=== PATIENT | male | born 1960 | race Two or more races ===

== ENCOUNTER 2020-12-07 15:03 | Inpatient (IN) | payer BC ==
[~2020-12-07] VITALS: Ht 165.1 cm; Wt 88.9 kg
[2020-12-07 17:32] LABS: CHLORIDE 108 mEq/L (98-107)
[2020-12-07 17:37] LABS: BASOPHILS % 0.7 % (0.0-2.0); EOSINOPHILS % 7.7 % (0.0-5.0); HEMATOCRIT. 43.2 % (42.0-52.0); LYMPHOCYTES % 33.3 % (20.0-50.0); MEAN CORPUSCULAR HEMOGLOBIN 32.2 pg (28.0-32.0); MEAN CORPUSCULAR VOLUME 92.7 fL (80.0-94.0); MEAN PLATELET VOLUME 7.6 fl (7.4-10.4); MONOCYTES % 6.9 % (2.0-8.0); NEUTROPHILS % 51.4 % (40.0-76.0); PLATELET 253 x1000/uL (130-400); RED BLOOD CELL COUNT 4.65 mill/uL (4.7-6.1); RED CELL DISTRIBUTION WIDTH 13.7 % (11.6-14.6)
[2020-12-07 17:54] LABS: CLARITY URINE CLEAR (CLEAR); COLOR URINE YELLOW (YELLOW); KETONES URINE NEGATIVE (NEGATIVE); LEUKOCYTE ESTERASE URINE NEGATIVE (NEGATIVE); NITRITE URINE NEGATIVE (NEGATIVE); OCCULT BLOOD URINE NEGATIVE (NEGATIVE); PH URINE 5.5 (4.5-8.0); PROTEIN URINE NEGATIVE (NEGATIVE); SPECIFIC GRAVITY URINE 1.013 (1.005-1.030)
[2020-12-07] MEDS ORDERED: GUAIFENESIN 200MG/10ML SUGAR FREE UDC PO PRN (21:30)
[2020-12-07] MEDS ORDERED: ZOLPIDEM TARTRATE 5MG TABLET PO PRN (21:30)
[2020-12-07] MEDS ORDERED: IPRATROPIUM/ALBUTEROL 0.5-3(2.5)MG/3ML NEB NEB PRN (21:30)
[2020-12-07] MEDS ORDERED: NITROGLYCERIN 0.4MG TABLET SL SL PRN (21:30)
[2020-12-07] MEDS ORDERED: MAGNESIUM/ALUMINUM HYDROXIDE/SIMETHICONE 30ML UDC PO PRN (21:30)
[2020-12-07] MEDS ORDERED: ACETAMINOPHEN 325MG TABLET PO PRN ×2 (21:30)
[2020-12-07] MEDS ORDERED: NA PHOS,M-B/NA PHOS,DI-BA ENEMA 118ML PR PRN (21:30)
[2020-12-07] MEDS ORDERED: ONDANSETRON HCL 4MG/2ML INJ IV PRN (21:30)
[2020-12-07] MEDS ORDERED: TRAMADOL 50MG TABLET PO PRN (21:41)
[2020-12-07] MEDS ORDERED: KETOROLAC 15MG/ML VIAL IV PRN (21:41)
[2020-12-07] MEDS ORDERED: ENOXAPARIN 40MG/0.4ML SYR SUBCUT SCH (22:00)
[2020-12-07 22:02] LABS: INR 0.9; PROTHROMBIN TIME 10.2 sec (9.6-11.0)
[2020-12-08] VITALS (7 sets, daily range): BP systolic 117–137; BP diastolic 78–97
[2020-12-08] MEDS ORDERED: ZINC SULFATE 220 MG ( 50 ) CAPSULE PO SCH (09:00)
[2020-12-08] MEDS ORDERED: ASCORBIC ACID 500 MG TABLET PO SCH (09:00)
[2020-12-08] MEDS ORDERED: CHOLECALCIFEROL (D3) 1000 UNIT TABLET PO SCH (09:00)
[2020-12-08 09:22] LABS: BASOPHILS % 0.8 % (0.0-2.0); EOSINOPHILS % 10.7 % (0.0-5.0); HEMATOCRIT. 41.8 % (42.0-52.0); LYMPHOCYTES % 40.5 % (20.0-50.0); MEAN CORPUSCULAR HEMOGLOBIN 31.1 pg (28.0-32.0); MEAN CORPUSCULAR VOLUME 93.1 fL (80.0-94.0); MEAN PLATELET VOLUME 7.3 fl (7.4-10.4); MONOCYTES % 7.6 % (2.0-8.0); NEUTROPHILS % 40.4 % (40.0-76.0); PLATELET 245 x1000/uL (130-400); RED CELL DISTRIBUTION WIDTH 13.3 % (11.6-14.6)
[2020-12-08 09:28] LABS: CHLORIDE 110 mEq/L (98-107)
[2020-12-08 09:38] LABS: PHOSPHORUS 3.9 mg/dL (2.5-4.9)
[2020-12-08] MEDS: FAMOTIDINE 20MG TABLET PO SCH ×2 (10:39→21:12)
[2020-12-08] MEDS: DOCUSATE SODIUM 100MG CAPSULE PO PRN (10:40)
[2020-12-08] MEDS: DEXAMETHASONE 4MG/ML 1ML VIAL IV SCH ×2 (11:39→18:15)
[2020-12-08] MEDS ORDERED: NALOXONE HCL 0.4MG/ML VIAL IV PRN (14:30)
[2020-12-09] VITALS (11 sets, daily range): BP systolic 85–147; BP diastolic 65–93
[2020-12-09] MEDS: DEXAMETHASONE 4MG/ML 1ML VIAL IV SCH ×4 (05:18→19:56)
[2020-12-09] MEDS ORDERED: GENTAMICIN SULF 40MG/ML 2ML VIAL ONE (06:31)
[2020-12-09] MEDS ORDERED: LIDOCAINE HCL/EPINEPHRINE 1%-EPI 1:100,000 20 ML VIAL ONE (06:31)
[2020-12-09] MEDS ORDERED: THROMBIN (BOVINE) 5000 UNITS/VIAL TOP ONE (06:32)
[2020-12-09] MEDS ORDERED: FENTANYL CITRATE/PF 50MCG/ML 2ML VIAL ONE (07:23)
[2020-12-09] MEDS ORDERED: NEOSTIGMINE METHYLSULFATE 1MG/ML 10 ML VIAL ONE (07:23)
[2020-12-09] MEDS ORDERED: ROCURONIUM BROMIDE 10MG/ML VIAL 5ML IV ONE ×3 (07:23→08:17)
[2020-12-09] MEDS ORDERED: PROPOFOL 200MG/20ML VIAL IV ONE (07:23)
[2020-12-09] MEDS ORDERED: DEXAMETHASONE 4MG/ML 1ML VIAL ONE (07:24)
[2020-12-09] MEDS ORDERED: CEFAZOLIN SODIUM 1000MG/VIAL ONE (07:24)
[2020-12-09] MEDS ORDERED: METOCLOPRAMIDE HCL 10MG/2ML VIAL ONE (07:24)
[2020-12-09] MEDS ORDERED: ONDANSETRON HCL 4MG/2ML INJ ONE (07:24)
[2020-12-09] MEDS ORDERED: SUCCINYLCHOLINE CHLORIDE 200MG/10ML IV ONE (07:24)
[2020-12-09] MEDS ORDERED: GLYCOPYRROLATE 0.2 MG/ML 2ML VIAL ONE (07:24)
[2020-12-09] MEDS ORDERED: MIDAZOLAM HCL 2 MG/2 ML VIAL ONE (07:24)
[2020-12-09] MEDS ORDERED: SODIUM CHLORIDE 0.9% 10ML VIAL ONE (07:24)
[2020-12-09] MEDS ORDERED: PHENYLEPHRINE HCL 10 MG/ML 1ML (IV VIAL) IV ONE (07:24)
[2020-12-09] MEDS ORDERED: MORPHINE SULFATE 4 MG/ML CPJ (NOT FOR IM USE) IV PRN (07:30)
[2020-12-09] MEDS ORDERED: HYDROMORPHONE HCL/PF 2MG/ML (OR) ONE (08:00)
[2020-12-09 08:15] LABS: CHLORIDE 106 mEq/L (98-107)
[2020-12-09 08:17] LABS: BASOPHILS % 0.2 % (0.0-2.0); HEMATOCRIT. 44.8 % (42.0-52.0); HEMOGLOBIN. 15.1 g/dL (14.0-18.0); LYMPHOCYTES % 11.5 % (20.0-50.0); MEAN CORPUSCULAR HEMOGLOBIN 31.2 pg (28.0-32.0); MEAN CORPUSCULAR VOLUME 92.7 fL (80.0-94.0); MEAN PLATELET VOLUME 7.7 fl (7.4-10.4); MONOCYTES % 2.9 % (2.0-8.0); NEUTROPHILS % 85.4 % (40.0-76.0); PLATELET 271 x1000/uL (130-400); RED BLOOD CELL COUNT 4.83 mill/uL (4.7-6.1); RED CELL DISTRIBUTION WIDTH 13.3 % (11.6-14.6)
[2020-12-09] MEDS ORDERED: HYDROMORPHONE HCL/PF 2MG/ML CPJ IV PRN (09:15)
[2020-12-09] MEDS ORDERED: SODIUM CHLORIDE 0.9% 1,000 ML IV ONE (09:15)
[2020-12-09] MEDS ORDERED: MEPERIDINE HCL/PF 25MG/ML CPJ IV PRN ×2 (09:15)
[2020-12-09] MEDS ORDERED: MORPHINE SULFATE 2 MG/ML CPJ (NOT FOR IM USE) IV PRN (09:15)
[2020-12-09] MEDS ORDERED: ONDANSETRON HCL 4MG/2ML INJ IV PRN (09:15)
[2020-12-09] MEDS ORDERED: LABETALOL HCL 5MG/ML VIAL 20ML IV ONE (09:42)
[2020-12-09] MEDS ORDERED: DIPHENHYDRAMINE INJ IV PRN (10:45)
[2020-12-09] MEDS ORDERED: NALOXONE INJ IV PRN (10:45)
[2020-12-09] MEDS ORDERED: HYDROMORPHONE PCA 10MG/50ML IV PRN (10:45)
[2020-12-09] MEDS ORDERED: ONDANSETRON INJ IV PRN (10:45)
[2020-12-09] MEDS: NICARDIPINE 100 MG in SODIUM CHLORIDE 0.9% 60 ML IV PRN (11:00)
[2020-12-09] MEDS ORDERED: CEFAZOLIN SODIUM 1000MG/VIAL IV SCH (14:00)
[2020-12-09] MEDS: DEXT 5%/LACTATED RINGERS 1,000 ML IV SCH ×2 (15:36→15:38)
[2020-12-09] MEDS: CEFAZOLIN 1000MG PREMIX 50 ML IV SCH (15:42)
[2020-12-09] MEDS: FAMOTIDINE 20MG TABLET PO SCH (21:00)
[2020-12-10] VITALS (93 sets, daily range): BP systolic 73–141; BP diastolic 35–98
[2020-12-10] MEDS: CEFAZOLIN 1000MG PREMIX 50 ML IV SCH ×3 (00:29→16:10)
[2020-12-10] MEDS: DEXT 5%/LACTATED RINGERS 1,000 ML IV SCH ×3 (00:30→13:20)
[2020-12-10] MEDS: DEXAMETHASONE 4MG/ML 1ML VIAL IV SCH ×3 (02:46→13:18)
[2020-12-10 05:28] LABS: CHLORIDE 107 mEq/L (98-107)
[2020-12-10 05:34] LABS: HEMATOCRIT. 44.5 % (42.0-52.0); HEMOGLOBIN. 15.1 g/dL (14.0-18.0); MEAN CORPUSCULAR HEMOGLOBIN 31.3 pg (28.0-32.0); MEAN CORPUSCULAR VOLUME 92.1 fL (80.0-94.0); MEAN PLATELET VOLUME 7.8 fl (7.4-10.4); PLATELET 272 x1000/uL (130-400); RED BLOOD CELL COUNT 4.83 mill/uL (4.7-6.1); RED CELL DISTRIBUTION WIDTH 13.4 % (11.6-14.6)
[2020-12-10] MEDS: FAMOTIDINE 20MG TABLET PO SCH ×2 (08:10→21:16)
[2020-12-10] MEDS: DOCUSATE SODIUM 100MG CAPSULE PO PRN (08:10)
[2020-12-10] MEDS: CLONIDINE 0.1MG TABLET PO PRN ×2 (08:19→17:52)
[2020-12-10 10:28] LABS: PLATELET ESTIMATE NORMAL
[2020-12-10] MEDS ORDERED: HYDRALAZINE HCL 25MG TABLET PO NR (10:45)
[2020-12-10] MEDS: AMLODIPINE 10MG TABLET PO SCH (11:31)
[2020-12-10] MEDS: NICARDIPINE 100 MG in SODIUM CHLORIDE 0.9% 60 ML IV PRN (13:19)
[2020-12-10] MEDS: HYDRALAZINE HCL 25MG TABLET PO SCH ×2 (13:20→21:17)
[2020-12-11] VITALS (58 sets, daily range): BP systolic 92–159; BP diastolic 47–102
[2020-12-11] MEDS: CEFAZOLIN 1000MG PREMIX 50 ML IV SCH ×3 (00:17→15:33)
[2020-12-11] MEDS: DEXT 5%/LACTATED RINGERS 1,000 ML IV SCH ×2 (01:07→08:24)
[2020-12-11] MEDS: HYDRALAZINE HCL 25MG TABLET PO SCH (06:29)
[2020-12-11] MEDS: DOCUSATE SODIUM 100MG CAPSULE PO PRN (08:19)
[2020-12-11] MEDS: FAMOTIDINE 20MG TABLET PO SCH ×2 (08:19→21:21)
[2020-12-11] MEDS: AMLODIPINE 10MG TABLET PO SCH (08:20)
[2020-12-11] MEDS: CLONIDINE 0.1MG TABLET PO PRN (08:20)
[2020-12-11] MEDS: IPRATROPIUM/ALBUTEROL 0.5-3(2.5)MG/3ML NEB HHN SCH (12:48)
[2020-12-11] MEDS: HYDRALAZINE HCL 50MG TABLET PO SCH ×2 (13:43→21:21)
[2020-12-11] MEDS: LOSARTAN POTASSIUM 50 MG TABLET PO SCH (13:43)
[2020-12-11] MEDS: HYDROCODONE/ACETAMINOPHEN 5/325MG TABLET PO PRN (21:34)
[2020-12-12] VITALS (7 sets, daily range): BP systolic 109–121; BP diastolic 70–87
[2020-12-12] MEDS: IPRATROPIUM/ALBUTEROL 0.5-3(2.5)MG/3ML NEB HHN SCH ×4 (00:26→16:36)
[2020-12-12] MEDS: HYDROCODONE/ACETAMINOPHEN 5/325MG TABLET PO PRN ×2 (05:05→15:33)
[2020-12-12] MEDS: HYDRALAZINE HCL 50MG TABLET PO SCH ×3 (05:06→20:59)
[2020-12-12 08:07] LABS: BASOPHILS % 0.1 % (0.0-2.0); EOSINOPHILS % 0.4 % (0.0-5.0); HEMATOCRIT. 41.7 % (42.0-52.0); HEMOGLOBIN. 13.9 g/dL (14.0-18.0); LYMPHOCYTES % 30.5 % (20.0-50.0); MEAN CORPUSCULAR HEMOGLOBIN 31.1 pg (28.0-32.0); MEAN CORPUSCULAR VOLUME 93.2 fL (80.0-94.0); MEAN PLATELET VOLUME 7.8 fl (7.4-10.4); MONOCYTES % 7.9 % (2.0-8.0); NEUTROPHILS % 61.1 % (40.0-76.0); PLATELET 249 x1000/uL (130-400); RED BLOOD CELL COUNT 4.47 mill/uL (4.7-6.1); RED CELL DISTRIBUTION WIDTH 13.4 % (11.6-14.6)
[2020-12-12 08:09] LABS: CHLORIDE 107 mEq/L (98-107)
[2020-12-12] MEDS: LOSARTAN POTASSIUM 50 MG TABLET PO SCH (08:55)
[2020-12-12] MEDS: FAMOTIDINE 20MG TABLET PO SCH ×2 (08:55→20:49)
[2020-12-12] MEDS: AMLODIPINE 10MG TABLET PO SCH (08:55)
[2020-12-12] MEDS: MORPHINE SULFATE 4 MG/ML CPJ (NOT FOR IM USE) IV PRN (20:51)
[2020-12-13] VITALS (10 sets, daily range): BP systolic 90–137; BP diastolic 54–80
[2020-12-13] MEDS: IPRATROPIUM/ALBUTEROL 0.5-3(2.5)MG/3ML NEB HHN SCH ×2 (00:40→13:04)
[2020-12-13] MEDS: HYDROCODONE/ACETAMINOPHEN 5/325MG TABLET PO PRN ×2 (04:57→20:42)
[2020-12-13] MEDS: HYDRALAZINE HCL 50MG TABLET PO SCH ×3 (06:00→20:30)
[2020-12-13] MEDS: FAMOTIDINE 20MG TABLET PO SCH ×2 (08:58→20:29)
[2020-12-13] MEDS: AMLODIPINE 10MG TABLET PO SCH (08:59)
[2020-12-13] MEDS: LOSARTAN POTASSIUM 50 MG TABLET PO SCH (09:00)
[2020-12-14] VITALS (10 sets, daily range): BP systolic 95–142; BP diastolic 59–86
[2020-12-14] MEDS: MORPHINE SULFATE 4 MG/ML CPJ (NOT FOR IM USE) IV PRN ×2 (02:45→21:49)
[2020-12-14] MEDS: HYDRALAZINE HCL 50MG TABLET PO SCH ×3 (05:35→21:49)
[2020-12-14] MEDS: LOSARTAN POTASSIUM 50 MG TABLET PO SCH (07:57)
[2020-12-14] MEDS: AMLODIPINE 10MG TABLET PO SCH (07:58)
[2020-12-14] MEDS: FAMOTIDINE 20MG TABLET PO SCH ×2 (07:58→20:14)
[2020-12-14] MEDS: IPRATROPIUM/ALBUTEROL 0.5-3(2.5)MG/3ML NEB HHN SCH ×2 (08:13→16:45)
[2020-12-14] MEDS: LACTULOSE 20G/30ML UDC PO SCH ×3 (13:10→20:14)
[2020-12-14] MEDS ORDERED: BISACODYL 10MG SUPP PR NR (13:15)
[2020-12-15] VITALS (8 sets, daily range): BP systolic 92–156; BP diastolic 50–85
[2020-12-15] MEDS: HYDRALAZINE HCL 50MG TABLET PO SCH ×3 (05:53→21:04)
[2020-12-15] MEDS: FAMOTIDINE 20MG TABLET PO SCH ×2 (08:52→21:03)
[2020-12-15] MEDS: AMLODIPINE 10MG TABLET PO SCH (08:52)
[2020-12-15] MEDS: LOSARTAN POTASSIUM 50 MG TABLET PO SCH (08:52)
[2020-12-15] MEDS: IPRATROPIUM/ALBUTEROL 0.5-3(2.5)MG/3ML NEB HHN SCH (11:56)
[2020-12-15] MEDS ORDERED: SORBITOL 70% SOLN 30ML PO NR (15:00)
[2020-12-15] MEDS ORDERED: NA PHOS,M-B/NA PHOS,DI-BA ENEMA 118ML PR PRN (15:00)
[2020-12-15] MEDS ORDERED: NA PHOS,M-B/NA PHOS,DI-BA ENEMA 118ML PR NR (15:00)
[2020-12-16] MEDS: IPRATROPIUM/ALBUTEROL 0.5-3(2.5)MG/3ML NEB HHN SCH ×2 (00:37→08:14)
[2020-12-16] MEDS: HYDROCODONE/ACETAMINOPHEN 5/325MG TABLET PO PRN ×2 (01:29→10:50)
[2020-12-16 04:00] VITALS: BP 126/76
[2020-12-16] MEDS: HYDRALAZINE HCL 50MG TABLET PO SCH ×3 (05:33→21:07)
[2020-12-16 08:00] VITALS: BP 122/78
[2020-12-16] MEDS: LOSARTAN POTASSIUM 50 MG TABLET PO SCH (08:38)
[2020-12-16] MEDS: FAMOTIDINE 20MG TABLET PO SCH ×2 (08:38→21:05)
[2020-12-16] MEDS: AMLODIPINE 10MG TABLET PO SCH (08:38)
[2020-12-16 16:00] VITALS: BP 125/78
[2020-12-16 20:00] VITALS: BP 108/69
[2020-12-17] VITALS: BP 114/80
[2020-12-17] MEDS: MORPHINE SULFATE 4 MG/ML CPJ (NOT FOR IM USE) IV PRN (00:07)
[2020-12-17 04:00] VITALS: BP 104/76
[2020-12-17] MEDS: HYDRALAZINE HCL 50MG TABLET PO SCH (05:45)
[2020-12-17 08:00] VITALS: BP 126/87
[2020-12-17] MEDS: AMLODIPINE 10MG TABLET PO SCH (08:36)
[2020-12-17] MEDS: FAMOTIDINE 20MG TABLET PO SCH (08:36)
[2020-12-17] MEDS: LOSARTAN POTASSIUM 50 MG TABLET PO SCH (08:36)
[2020-12-17 12:00] VITALS: BP 107/53
[2020-12-17 14:27] VITALS: BP 114/76
== END 2020-12-17 15:00 | disposition home health service (06) | DRG 471 ==
LOC: ER 15:03 → 6EST 20:55 → ENRESERV 22:33 → ER 22:54 → MICUSO 12-09 22:10 → 5EST 12-11 14:18
PROVIDERS: ADMIT Internal Medicine; ATTEND Internal Medicine
PROC: 0RG2071 Fusion of 2 or more Cervical Vertebral Joints with Autologous Tissue Substitute, Posterior Approach, Posterior Column, Open Approach (ICD-10-PCS; principal; 2020-12-07)
PROC: 01N10ZZ Release Cervical Nerve, Open Approach (ICD-10-PCS; 2020-12-07)
PROC: 4A11X4G Monitoring of Peripheral Nervous Electrical Activity, Intraoperative, External Approach (ICD-10-PCS; 2020-12-07)
DX: M48.02 Spinal stenosis, cervical region (principal); G82.50 Quadriplegia, unspecified; G99.2 Myelopathy in diseases classified elsewhere; I10 Essential (primary) hypertension; F17.210 Nicotine dependence, cigarettes, uncomplicated; M54.12 Radiculopathy, cervical region; M48.03 Spinal stenosis, cervicothoracic region; D64.9 Anemia, unspecified; D72.829 Elevated white blood cell count, unspecified; R53.81 Other malaise; R13.10 Dysphagia, unspecified; Z20.822 Contact with and (suspected) exposure to COVID-19; I16.0 Hypertensive urgency; Z99.3 Dependence on wheelchair
CPT/HCPCS: 36415; 71045; 72040; 72141; 76000; 80048; 80053; 81003; 83735; 84100; 85025; 86850; 86900; 87426; 88305; 88311; 93005; 93306; 93970; 94640; 95863; 95925; 95926; 95928; 95929; 97110; 97116; 97161; 97166; 97530; 97535; 99285; A6261; C1713; J0330; J0690; J1100; J1170; J1580; J1650; J2175; J2250; J2270; J2370; J2405; J2704; J2710; J2765; J3010; J3490; J7040; J7050; J7121; L0172

== ENCOUNTER 2021-08-30 05:31 | Inpatient (IN) | payer BC ==
[2021-08-30] VITALS (19 sets, daily range): BP systolic 67–137; BP diastolic 43–76
[~2021-08-30] VITALS: Ht 172.7 cm; Wt 81.6 kg
[~2021-08-30 05:31] MED LIST: ROCURONIUM BROMIDE 10MG/ML VIAL 5ML IV ONE
[2021-08-30] MEDS: LACTATED RINGERS 1,000 ML IV SCH (06:25)
[2021-08-30] MEDS ORDERED: THROMBIN (BOVINE) 5000 UNITS/VIAL TOP ONE (06:31)
[2021-08-30] MEDS ORDERED: GENTAMICIN SULF 40MG/ML 2ML VIAL ONE (06:32)
[2021-08-30] MEDS ORDERED: LIDOCAINE HCL/EPINEPHRINE 1%-EPI 1:100,000 20 ML VIAL ONE (06:32)
[2021-08-30] MEDS ORDERED: HYDROMORPHONE HCL/PF 2MG/ML CPJ ONE (07:24)
[2021-08-30] MEDS ORDERED: ROCURONIUM BROMIDE 10MG/ML VIAL 5ML IV ONE ×2 (07:24→08:15)
[2021-08-30] MEDS ORDERED: ALBUMIN HUMAN 25GM/100ML (25%) IV ONE (07:57)
[2021-08-30] MEDS ORDERED: CALCIUM CHLORIDE 1GM/10ML SYR IV ONE (07:58)
[2021-08-30] MEDS ORDERED: CEFAZOLIN SODIUM 1000MG/VIAL ONE (09:38)
[2021-08-30] MEDS ORDERED: DEXAMETHASONE 4MG/ML 1ML VIAL ONE (09:38)
[2021-08-30] MEDS ORDERED: EPHEDRINE SULFATE 50MG/ML VIAL ONE (09:38)
[2021-08-30 10:04] LABS: CLARITY URINE CLEAR (CLEAR); COLOR URINE YELLOW (YELLOW); KETONES URINE NEGATIVE (NEGATIVE); LEUKOCYTE ESTERASE URINE NEGATIVE (NEGATIVE); NITRITE URINE NEGATIVE (NEGATIVE); OCCULT BLOOD URINE NEGATIVE (NEGATIVE); PH URINE 6.5 (4.5-8.0); PROTEIN URINE NEGATIVE (NEGATIVE); SPECIFIC GRAVITY URINE 1.009 (1.005-1.030); UROBILINOGEN URINE 0.2 E.U./dL (0.2-1.0)
[2021-08-30] MEDS ORDERED: HYDRALAZINE 20MG/ML VIAL ONE (10:31)
[2021-08-30] MEDS ORDERED: NICARDIPINE 100 MG in SODIUM CHLORIDE 0.9% 60 ML IV PRN (10:45)
[2021-08-30] MEDS ORDERED: MEPERIDINE HCL/PF 25MG/ML CPJ IV PRN (11:00)
[2021-08-30] MEDS ORDERED: ONDANSETRON HCL 4MG/2ML INJ IV PRN (11:00)
[2021-08-30] MEDS ORDERED: NALOXONE HCL 0.4MG/ML VIAL IV PRN (11:00)
[2021-08-30] MEDS ORDERED: LABETALOL 5MG/ML SYR 20 MG/4 ML SYRINGE IV PRN (11:00)
[2021-08-30] MEDS ORDERED: HYDROMORPHONE HCL/PF 2MG/ML CPJ IV PRN (11:00)
[2021-08-30] MEDS: DEXT 5%/LACTATED RINGERS 1,000 ML IV SCH ×2 (12:41→23:01)
[2021-08-30] MEDS ORDERED: CEFAZOLIN SODIUM 1000MG/VIAL IV SCH (14:00)
[2021-08-30] MEDS: CEFAZOLIN 1000MG PREMIX 50 ML IV SCH ×2 (15:12→23:21)
[2021-08-30] MEDS ORDERED: IPRATROPIUM/ALBUTEROL 0.5-3(2.5)MG/3ML NEB HHN PRN (15:15)
[2021-08-30] MEDS: HYDROCODONE/APAP 7.5/325MG 1 TAB TABLET PO PRN (16:45)
[2021-08-30] MEDS ORDERED: ALBUMIN HUMAN 25GM/100ML (25%) IV NR (18:15)
[2021-08-30] MEDS: MORPHINE SULFATE 4 MG/ML CPJ (NOT FOR IM USE) IV PRN (23:00)
[2021-08-31] VITALS (49 sets, daily range): BP systolic 71–204; BP diastolic 45–183
[2021-08-31] MEDS: DEXT 5%/LACTATED RINGERS 1,000 ML IV SCH ×3 (02:45→18:45)
[2021-08-31] MEDS: MORPHINE SULFATE 4 MG/ML CPJ (NOT FOR IM USE) IV PRN ×2 (05:54→12:54)
[2021-08-31] MEDS: CEFAZOLIN 1000MG PREMIX 50 ML IV SCH ×3 (07:48→22:07)
[2021-08-31] MEDS: HYDROCODONE/APAP 7.5/325MG 1 TAB TABLET PO PRN (22:07)
[2021-09-01] VITALS: BP 111/60
[2021-09-01 04:00] VITALS: BP 128/80
[2021-09-01] MEDS: DEXT 5%/LACTATED RINGERS 1,000 ML IV SCH ×2 (04:42→14:31)
[2021-09-01] MEDS: MORPHINE SULFATE 4 MG/ML CPJ (NOT FOR IM USE) IV PRN ×2 (04:44→08:30)
[2021-09-01] MEDS: CEFAZOLIN 1000MG PREMIX 50 ML IV SCH ×3 (06:48→22:20)
[2021-09-01 08:00] VITALS: BP 129/82
[2021-09-01] MEDS: HYDROCODONE/APAP 7.5/325MG 1 TAB TABLET PO PRN ×2 (12:30→19:09)
[2021-09-01 15:34] LABS: BASOPHILS % 0.3 % (0.0-2.0); EOSINOPHILS % 3.5 % (0.0-5.0); HEMATOCRIT. 33.8 % (42.0-52.0); HEMOGLOBIN. 11.6 g/dL (14.0-18.0); LYMPHOCYTES % 15.8 % (20.0-50.0); MEAN CORPUSCULAR HEMOGLOBIN 31.7 pg (28.0-32.0); MEAN CORPUSCULAR VOLUME 92.7 fL (80.0-94.0); MEAN PLATELET VOLUME 7.6 fl (7.4-10.4); MONOCYTES % 7.5 % (2.0-8.0); NEUTROPHILS % 72.9 % (40.0-76.0); PLATELET 206 x1000/uL (130-400); RED BLOOD CELL COUNT 3.65 mill/uL (4.7-6.1); RED CELL DISTRIBUTION WIDTH 13.4 % (11.6-14.6)
[2021-09-01 15:39] LABS: CHLORIDE 106 mEq/L (98-107)
[2021-09-02 00:16] VITALS: BP 96/54
[2021-09-02] MEDS: MORPHINE SULFATE 4 MG/ML CPJ (NOT FOR IM USE) IV PRN (02:11)
[2021-09-02 04:09] VITALS: BP 106/72
[2021-09-02 06:10] LABS: BASOPHILS % 0.4 % (0.0-2.0); EOSINOPHILS % 5.4 % (0.0-5.0); HEMOGLOBIN. 11.5 g/dL (14.0-18.0); LYMPHOCYTES % 19.7 % (20.0-50.0); MEAN CORPUSCULAR HEMOGLOBIN 31.3 pg (28.0-32.0); MEAN CORPUSCULAR VOLUME 92.4 fL (80.0-94.0); MEAN PLATELET VOLUME 7.8 fl (7.4-10.4); MONOCYTES % 7.9 % (2.0-8.0); NEUTROPHILS % 66.6 % (40.0-76.0); PLATELET 200 x1000/uL (130-400); RED BLOOD CELL COUNT 3.68 mill/uL (4.7-6.1)
[2021-09-02 06:29] LABS: CHLORIDE 103 mEq/L (98-107)
[2021-09-02] MEDS: CEFAZOLIN 1000MG PREMIX 50 ML IV SCH ×3 (06:58→21:45)
[2021-09-02 08:00] VITALS: BP 106/77
[2021-09-02] MEDS: HYDROCODONE/APAP 7.5/325MG 1 TAB TABLET PO PRN ×2 (10:34→18:36)
[2021-09-02 12:00] VITALS: BP 101/60
[2021-09-02 16:00] VITALS: BP 101/56
[2021-09-02 20:00] VITALS: BP 112/70
[2021-09-03] VITALS (7 sets, daily range): BP systolic 99–118; BP diastolic 55–72
[2021-09-03] MEDS: LACTATED RINGERS 1,000 ML IV SCH (00:48)
[2021-09-03] MEDS: HYDROCODONE/APAP 7.5/325MG 1 TAB TABLET PO PRN ×3 (04:45→23:00)
[2021-09-03] MEDS: CEFAZOLIN 1000MG PREMIX 50 ML IV SCH ×3 (06:50→21:22)
[2021-09-03 07:57] LABS: BASOPHILS % 0.4 % (0.0-2.0); HEMATOCRIT. 33.1 % (42.0-52.0); HEMOGLOBIN. 11.4 g/dL (14.0-18.0); LYMPHOCYTES % 16.3 % (20.0-50.0); MEAN CORPUSCULAR HEMOGLOBIN 31.6 pg (28.0-32.0); MEAN CORPUSCULAR VOLUME 91.6 fL (80.0-94.0); MEAN PLATELET VOLUME 7.7 fl (7.4-10.4); MONOCYTES % 7.6 % (2.0-8.0); NEUTROPHILS % 68.7 % (40.0-76.0); PLATELET 238 x1000/uL (130-400); RED BLOOD CELL COUNT 3.61 mill/uL (4.7-6.1); RED CELL DISTRIBUTION WIDTH 12.8 % (11.6-14.6)
[2021-09-03 08:05] LABS: CHLORIDE 106 mEq/L (98-107)
== END 2021-09-03 23:05 | DRG 460 ==
LOC: OR 05:31 → MICUNO 19:59 → 6EST 08-31 11:14
PROVIDERS: ADMIT Neurological Surgery; ATTEND Neurological Surgery
PROC: 0SG1071 Fusion of 2 or more Lumbar Vertebral Joints with Autologous Tissue Substitute, Posterior Approach, Posterior Column, Open Approach (ICD-10-PCS; principal; 2021-08-30)
PROC: 01NB0ZZ Release Lumbar Nerve, Open Approach (ICD-10-PCS; 2021-08-30)
PROC: 4A11X4G Monitoring of Peripheral Nervous Electrical Activity, Intraoperative, External Approach (ICD-10-PCS; 2021-08-30)
DX: M47.16 Other spondylosis with myelopathy, lumbar region (principal); G82.20 Paraplegia, unspecified; G81.90 Hemiplegia, unspecified affecting unspecified side; M48.061 Spinal stenosis, lumbar region without neurogenic claudication; M43.16 Spondylolisthesis, lumbar region; Z20.822 Contact with and (suspected) exposure to COVID-19; I10 Essential (primary) hypertension; D64.9 Anemia, unspecified; F17.210 Nicotine dependence, cigarettes, uncomplicated; M47.817 Spondylosis without myelopathy or radiculopathy, lumbosacral region; Z82.49 Family history of ischemic heart disease and other diseases of the circulatory system
CPT/HCPCS: 36415; 72100; 76000; 80048; 81003; 85025; 86850; 86900; 87426; 95863; 95925; 95926; 95928; 95929; 97116; 97162; 97166; 97530; 97535; C1713; J0360; J0690; J1100; J1170; J1580; J2270; J3490; J7121; P9047

== ENCOUNTER 2021-09-03 23:07 | Inpatient (IN) | payer BC ==
[~2021-09-03] VITALS: Ht 172.7 cm; Wt 79.8 kg
[2021-09-03 23:07] VITALS: BP 121/81
[2021-09-04 00:50] VITALS: BP 121/81
[2021-09-04] MEDS ORDERED: MORPHINE SULFATE 4 MG/ML CPJ (NOT FOR IM USE) IV PRN (02:30)
[2021-09-04] MEDS ORDERED: NALOXONE HCL 0.4 MG/ML 1ML VIAL IV PRN (02:30)
[2021-09-04] MEDS ORDERED: IPRATROPIUM/ALBUTEROL 0.5-3(2.5)MG/3ML NEB HHN PRN (02:30)
[2021-09-04] MEDS ORDERED: LACTATED RINGERS 1,000 ML IV SCH (02:30)
[2021-09-04] MEDS ORDERED: MORPHINE SULFATE 2 MG/ML CPJ (NOT FOR IM USE) IV PRN (02:45)
[2021-09-04 07:35] LABS: BASOPHILS % 0.3 % (0.0-2.0); EOSINOPHILS % 9.4 % (0.0-5.0); HEMATOCRIT. 33.6 % (42.0-52.0); HEMOGLOBIN. 11.6 g/dL (14.0-18.0); LYMPHOCYTES % 18.5 % (20.0-50.0); MEAN CORPUSCULAR HEMOGLOBIN 31.7 pg (28.0-32.0); MEAN CORPUSCULAR VOLUME 92.3 fL (80.0-94.0); MEAN PLATELET VOLUME 7.4 fl (7.4-10.4); MONOCYTES % 8.8 % (2.0-8.0); PLATELET 286 x1000/uL (130-400); RED BLOOD CELL COUNT 3.64 mill/uL (4.7-6.1); RED CELL DISTRIBUTION WIDTH 12.7 % (11.6-14.6)
[2021-09-04 07:52] LABS: CHLORIDE 107 mEq/L (98-107)
[2021-09-04 08:00] VITALS: BP 102/62
[2021-09-04] MEDS: CEFAZOLIN 1000MG PREMIX 50 ML IV SCH ×3 (08:04→22:17)
[2021-09-04] MEDS: HYDROCODONE/APAP 7.5/325MG 1 TAB TABLET PO PRN (09:43)
[2021-09-04 12:00] VITALS: BP 115/65
[2021-09-04] MEDS: LACTULOSE 20G/30ML UDC PO SCH ×2 (12:30→16:53)
[2021-09-04 16:00] VITALS: BP 123/62
[2021-09-04 20:00] VITALS: BP 103/55
[2021-09-05] MEDS: HYDROCODONE/APAP 7.5/325MG 1 TAB TABLET PO PRN ×2 (00:03→23:04)
[2021-09-05] MEDS: CEFAZOLIN 1000MG PREMIX 50 ML IV SCH (07:15)
[2021-09-05 07:49] LABS: BASOPHILS % 0.5 % (0.0-2.0); EOSINOPHILS % 10.8 % (0.0-5.0); HEMATOCRIT. 34.8 % (42.0-52.0); HEMOGLOBIN. 11.7 g/dL (14.0-18.0); LYMPHOCYTES % 21.5 % (20.0-50.0); MEAN CORPUSCULAR HEMOGLOBIN 31.1 pg (28.0-32.0); MEAN CORPUSCULAR VOLUME 92.5 fL (80.0-94.0); MEAN PLATELET VOLUME 7.3 fl (7.4-10.4); MONOCYTES % 8.9 % (2.0-8.0); NEUTROPHILS % 58.3 % (40.0-76.0); PLATELET 301 x1000/uL (130-400); RED BLOOD CELL COUNT 3.76 mill/uL (4.7-6.1); RED CELL DISTRIBUTION WIDTH 13.2 % (11.6-14.6)
[2021-09-05 08:00] VITALS: BP 125/81
[2021-09-05 08:08] LABS: CHLORIDE 106 mEq/L (98-107)
[2021-09-05 08:26] LABS: TOTAL IRON BINDING CAPACITY 260 ug/dL (250-450)
[2021-09-05 08:39] LABS: FOLIC ACID (FOLATE) SERUM 16.1 ng/mL (>5.38)
[2021-09-05 12:00] VITALS: BP 128/83
[2021-09-05] MEDS: CYANOCOBALAMIN 1000MCG/ML VIAL IM SCH (12:45)
[2021-09-05] MEDS: FERROUS SULFATE 325MG TABLET PO SCH ×2 (14:32→17:42)
[2021-09-05] MEDS: ASCORBIC ACID 500 MG TABLET PO SCH (14:32)
[2021-09-05 16:00] VITALS: BP 120/80
[2021-09-05 20:00] VITALS: BP 118/83
[2021-09-06 07:55] VITALS: BP 111/78
[2021-09-06] MEDS: ASCORBIC ACID 500 MG TABLET PO SCH (08:01)
[2021-09-06] MEDS: FERROUS SULFATE 325MG TABLET PO SCH ×3 (08:01→17:34)
[2021-09-06] MEDS: CYANOCOBALAMIN 1000MCG/ML VIAL IM SCH (08:02)
[2021-09-06 20:43] VITALS: BP 109/68
[2021-09-06] MEDS: HYDROCODONE/APAP 7.5/325MG 1 TAB TABLET PO PRN (21:55)
[2021-09-07 08:00] VITALS: BP 105/66
[2021-09-07] MEDS: ASCORBIC ACID 500 MG TABLET PO SCH (09:07)
[2021-09-07] MEDS: FERROUS SULFATE 325MG TABLET PO SCH ×3 (09:07→17:32)
[2021-09-07] MEDS: CYANOCOBALAMIN 1000MCG/ML VIAL IM SCH (09:08)
[2021-09-07 20:00] VITALS: BP 105/69
[2021-09-08] MEDS: HYDROCODONE/APAP 7.5/325MG 1 TAB TABLET PO PRN ×2 (00:24→21:34)
[2021-09-08 08:00] VITALS: BP 132/82
[2021-09-08] MEDS: ASCORBIC ACID 500 MG TABLET PO SCH (09:01)
[2021-09-08] MEDS: FERROUS SULFATE 325MG TABLET PO SCH ×3 (09:01→17:37)
[2021-09-08] MEDS: CYANOCOBALAMIN 1000MCG/ML VIAL IM SCH (09:01)
[2021-09-08] MEDS: LACTULOSE 20G/30ML UDC PO PRN (17:37)
[2021-09-08 20:00] VITALS: BP 123/81
[2021-09-09 07:56] VITALS: BP 104/71
[2021-09-09] MEDS: LACTULOSE 20G/30ML UDC PO PRN (08:45)
[2021-09-09] MEDS: ASCORBIC ACID 500 MG TABLET PO SCH (08:45)
[2021-09-09] MEDS: CYANOCOBALAMIN 1000MCG/ML VIAL IM SCH (08:45)
[2021-09-09] MEDS: FERROUS SULFATE 325MG TABLET PO SCH ×3 (08:46→17:15)
[2021-09-09 20:00] VITALS: BP 115/78
[2021-09-10] MEDS ORDERED: HYDROCODONE/APAP 7.5/325MG 1 TAB TABLET PO PRN (01:00)
[2021-09-10 07:58] VITALS: BP 105/77
[2021-09-10] MEDS: FERROUS SULFATE 325MG TABLET PO SCH ×3 (08:04→16:09)
[2021-09-10] MEDS: ASCORBIC ACID 500 MG TABLET PO SCH (08:04)
[2021-09-10] MEDS: CYANOCOBALAMIN 1000MCG/ML VIAL IM SCH (08:04)
[2021-09-10] MEDS ORDERED: ASCO500T20 PO (08:53)
[2021-09-10] MEDS ORDERED: VITA1CAP MT (08:53)
[2021-09-10] MEDS ORDERED: FERR325T6 MT (08:53)
[2021-09-10] MEDS ORDERED: DOCU100T MT (08:53)
[2021-09-10 20:00] VITALS: BP 118/74
[2021-09-11] MEDS ORDERED: HYDROCODONE/APAP 7.5/325MG 1 TAB TABLET PO PRN (00:30)
[2021-09-11 08:00] VITALS: BP 96/65
[2021-09-11] MEDS: ASCORBIC ACID 500 MG TABLET PO SCH (08:26)
[2021-09-11] MEDS: FERROUS SULFATE 325MG TABLET PO SCH ×2 (08:27→12:27)
[2021-09-11] MEDS: CYANOCOBALAMIN 1000MCG/ML VIAL IM SCH (08:27)
[2021-09-11 11:26] VITALS: BP 95/65
[2021-09-11 17:11] LABS: 25-HYDROXY VITAMIN D3 16 ng/mL (.)
[2021-09-18] MEDS ORDERED: CYANOCOBALAMIN 1000MCG/ML VIAL IM SCH (09:00)
== END 2021-09-11 14:05 | disposition home health service (06) | DRG 551 ==
PROVIDERS: ADMIT Physical Medicine & Rehabilitation Spinal Cord Injury Medicine; ATTEND Internal Medicine
DX: M48.061 Spinal stenosis, lumbar region without neurogenic claudication (principal); G82.50 Quadriplegia, unspecified; E53.8 Deficiency of other specified B group vitamins; F17.210 Nicotine dependence, cigarettes, uncomplicated; I10 Essential (primary) hypertension; M47.816 Spondylosis without myelopathy or radiculopathy, lumbar region; D64.9 Anemia, unspecified; M48.02 Spinal stenosis, cervical region; M54.12 Radiculopathy, cervical region; M43.16 Spondylolisthesis, lumbar region; R53.1 Weakness; R26.9 Unspecified abnormalities of gait and mobility; R53.81 Other malaise; R20.0 Anesthesia of skin; Z82.49 Family history of ischemic heart disease and other diseases of the circulatory system; Z79.899 Other long term (current) drug therapy; Z98.1 Arthrodesis status; M79.609 Pain in unspecified limb; E61.1 Iron deficiency
CPT/HCPCS: 36415; 80048; 80053; 82306; 82607; 82728; 82746; 82962; 83540; 83550; 84134; 84443; 85025; 93970; 97110; 97116; 97162; 97166; 97530; 97535; J0690; J3420